=== PATIENT | female | born 1965 | race Caucasian/White ===

== ENCOUNTER 2022-05-18 10:32 | Day surgery (SDC) | payer BC ==
[2022-05-14 10:41] LABS: Absolute Lymphocytes (CBC) 2.8 K/uL (0.7-4.9); Hematocrit 45.6 % (36.0-45.0); MCV 94.7 fL (80-100); MPV 7.9 fL (7.6-11.3); RBC Red Blood Cell Count 4.81 M/uL (3.86-4.86)
[2022-05-14 10:47] LABS: Urine Bacteria <20 /HPF (<20); Urine RBC <5 /HPF (None Seen)
[2022-05-14 10:51] LABS: Specific Gravity < 1.005 (1.005-1.030); Urine Bilirubin NEGATIVE (Negative); Urine Blood Negative (Negative); Urine Clarity Clear (Clear); Urine Color Colorless (Yellow); Urine Glucose NEGATIVE (Negative); Urine Protein NEGATIVE (Negative); Urine Urobilinogen Normal (Normal); Urine pH 5.5 (5.0-7.0)
[2022-05-18] MEDS ORDERED: Ringers Lactate 1,000 ML IV ONE ×2 (10:57→13:09)
[2022-05-18] MEDS ORDERED: SCOPOLAMINE HYDROBROMIDE PATCH TD ONE (10:57)
[2022-05-18] MEDS ORDERED: BUPIVACAINE 0.25% PF 30 ML VIAL ONE (11:42)
[2022-05-18] MEDS ORDERED: propofoL 200 MG/20 ML VIAL IV ONE (11:54)
[2022-05-18] MEDS ORDERED: FENTANYL CITR 100 MCG/2 ML ONE (11:54)
[2022-05-18] MEDS ORDERED: LIDOCAINE 2% MPF 5 ML VIAL ONE (11:55)
[2022-05-18] MEDS ORDERED: dexAMETHasone 10 MG/ML VIAL ONE (11:55)
[2022-05-18] MEDS ORDERED: ONDANSETRON 4 MG/2 ML VIAL ONE (11:55)
[2022-05-18] MEDS ORDERED: ROCURONIUM 50 MG/5 ML VIAL IV ONE (11:55)
[2022-05-18] MEDS ORDERED: MIDAZOLAM HCL 2 MG/2 ML INJ ONE ×2 (11:55→12:16)
[2022-05-18] MEDS ORDERED: KETOROLAC 30 MG/ML INJ ONE (11:55)
[2022-05-18] MEDS: CEFAZOLIN SODIUM 2 GM/VIAL ONE ×2 (12:11→12:42)
[2022-05-18] MEDS ORDERED: VECURONIUM 10 MG/VIAL IV ONE (12:59)
[2022-05-18] MEDS ORDERED: NS 0.9% VIAL 0 ML ONE (13:01)
[2022-05-18] MEDS ORDERED: MORPHINE 10 MG/ML VIAL ONE (13:06)
[2022-05-18] MEDS ORDERED: KETAMINE HCL 500 MG/5 ML VIAL ONE (13:06)
[2022-05-18] MEDS ORDERED: NS 0.9% VIAL 20 ML ONE (13:09)
[2022-05-18] MEDS ORDERED: NEOSTIGMINE 1 MG/ML -5 ML ONE (14:12)
[2022-05-18] MEDS ORDERED: GLYCOPYRROLATE 0.2 MG/ML SYR ONE (14:12)
[2022-05-18 15:21] VITALS: BP 128/67; TEMP 97.4; O2SAT 96
[2022-05-18] MEDS ORDERED: IBUPROFEN 200 MG TAB PO ONE (16:13)
[2022-05-18] MEDS ORDERED: IBUPROFEN 400 MG TAB ONE (16:14)
--- NOTE | 2022-05-18 18:23 | OP ---
Date of Procedure: 05/18/2022 Surgeon: Francie Bartlett MD Molding Supervisor: Katia Kern. Preoperative Diagnosis: Postmenopausal bleeding. Postoperative Diagnoses: Left 5 cm ovarian cyst and endometriosis. Procedures Performed: Total laparoscopic hysterectomy, bilateral salpingo-oophorectomy, endometriosi s excision, and pelvic washings. Anesthesia: General endotracheal. Estimated Blood Loss: Minimal. Specimens: Uterus, tubes, ovaries all removed intact. Pelvic washings and endometriosis implants we re all excised and included with the peritoneum. One separate specimen was given, but everything els e was excised widely especially in the lateral anterior cul-de-sac, peritoneum and included with the specimen. There were few implants left on the medial aspect of ureters and they were superficial in the peritoneum all the way down to the uterosacrals on each side. A larger implant on the anterior right cul-de-sac was also excised completely and included with the s pecimen. Indications: Patient is a 56-year-old, with postmenopausal bleeding, on hormone therapy in the past and sampling and other tests were performed and that was not revealing of any atypia or malignancy. We discussed all the benefits and risks and alternatives of treatment including observation, observat ion with follow up with ultrasound and symptomatic followup versus removing the uterus, tubes and ova indra, pelvic washings since the ovarian cyst was present. Description Of Procedure: After informed consent was verified, she was taken back to OR, placed in s upine fashion on the operating table. General anesthesia was given. She was placed in dorsal lithot nazario position using Keshawn stirrups. Abdomen, vulva, vagina, and perineum were prepped and draped with ChloraPrep and Betadine respectively. Speculum placed to expose the cervix. Anterior lip grasped with 2 Allis clamps. Cervix dilated to 1 6-Yakut and then a medium VCare was introduced and fixed in place. A Phillip was placed to drain the bladder attached to Phillip after initially draining the bladder. Infraumbilical incision was made with a scalpel in a similar fashion with 11 blade. After injecting dilute vasopressin in the abdominal areas as well then fascia was exposed, incised with the Bovie and then the knife. Peritoneum entered sharply. S-retractors were placed and Haroldo introduced after a dequate insufflation, site of entry was checked and was unremarkable. Slight retroperitoneal insuffl ation leading to CO2 in the fascial plane. After site of entry was checked and was unremarkable, upper abdominal surface was unremarkable and th e scope was turned inferiorly to inspect the pelvic, peritoneal cavity. Both ureters were traced fro m the pelvic brim to the ureteric tunnel. There was no anatomical distortion. Endometriosis was not ed as dictated and LigaSure was taken after 10 suprapubic and left 5, left lower quadrant port was pl aced after injecting Marcaine at fascia and skin. Left IP ligament, mesosalpinx and mesovarium tissu e was all cauterized and cut. Then, the round ligament on the left side, anterior broad ligament was raised to raise the bladder flap and posteriorly raised to the posterior cul-de-sac. All the vessel s in the peritoneum was exposed. Then the round ligament was taken down. The rest of the broad liga ment taken down to skeletonize the vessels and vessels were cauterized with the LigaSure and then car dinal ligaments were cut with the help of the LigaSure as well. Exact same procedure done on the opp osite side taking down the IP, mesosalpinx, round ligament, broad ligament, skeletonizing vessels and taking the uterine arteries down on both sides with electrocautery and cardinal ligament taken down with the help of the LigaSure and circumferential colpotomy with a monopolar hook blade after making sure there was adequate dissection inferiorly to push the bladder down. Circumferential colpotomy performed with the monopolar hook blade. One specimen was taken down, spec imen pulled out through the vagina, after pneumo-occlusion was placed with the sponge in a glove, the n 2-0 V-Loc was used to close, entire suture from right to left and back left to right in 2 layered f ashion with 2-0 V-Loc. Once this was done, 2 black sutures were placed. The suture was cut. I then went ahead and irrigated the wound and there was hemostasis. After all the pedicles were checked an d was unremarkable, peritoneal implants were visualized. There were peritoneal endometriosis implants in the anterior cul-de-sac and these were all excised wi norris and the peritoneum was excised entirely to remove this. Excellent hemostasis. All the ports we re removed under direct vision. Attempt was made to see the appendix but it was not visualized. No other implants were seen in the upper peritoneal cavity or the omentum. Gas desufflated. Ports thomas jorge luis under direct vision. Fascia at the umbilicus closed with the help of the 0 Vicryl sutures that w ere tied to each other and then simple 3-0 Vicryl stitch. Then, at the suprapubic fascial site, all skin incisions closed with 4-0 Monocryl in an interrupted fashion. Sponge and the Phillip were removed . Instrument, needle, and sponge counts were correct at the end of the case. The patient tolerated the procedure well. She will follow up in 1 week. ANAND/OLIVA Voice ID: [id number] Report ID: [id number]
== END 2022-05-18 16:29 | disposition home or self-care (01) ==
LOC: OR 10:32
PROVIDERS: ATTEND Obstetrics & Gynecology
PROC: 0UT2FZZ Resection of Bilateral Ovaries, Via Natural or Artificial Opening With Percutaneous Endoscopic Assistance (ICD-10-PCS; 2022-05-18)
PROC: 0UT7FZZ Resection of Bilateral Fallopian Tubes, Via Natural or Artificial Opening With Percutaneous Endoscopic Assistance (ICD-10-PCS; 2022-05-18)
PROC: 0UBF4ZZ Excision of Cul-de-sac, Percutaneous Endoscopic Approach (ICD-10-PCS; 2022-05-18)
PROC: 0DBW4ZZ Excision of Peritoneum, Percutaneous Endoscopic Approach (ICD-10-PCS; 2022-05-18)
PROC: 0UT9FZZ Resection of Uterus, Via Natural or Artificial Opening With Percutaneous Endoscopic Assistance (ICD-10-PCS; principal; 2022-05-18 12:30)
DX: N95.0 Postmenopausal bleeding (principal); N83.202 Unspecified ovarian cyst, left side; N84.0 Polyp of corpus uteri; N80.319 Endometriosis of the anterior cul-de-sac, unspecified depth
CPT/HCPCS: 85025; 36415; 86900; 88108; 86850; 86901; 88305; 88307; 81003; 58571; 58662; J2704; J2001; J2250 ×2; J3010; J1100; A4216; J2710; J7120 ×2; J2405